=== PATIENT | female | born 1995 | race Caucasian/White ===

== ENCOUNTER 2018-09-21 13:00 | Emergency (ER) | payer OTHER ==
[~2018-09-21] VITALS: Ht 175.3 cm; Wt 65.9 kg
[2018-09-21 13:18] VITALS: BP 110/73; TEMP 98.9
[2018-09-21 14:37] LABS: BASO % 0.4 % (0.0-2.0); EOS # 0.1 (0.0-0.7); EOS % 1.1 % (0-4.0); GRAN # 4.9 (1.4-6.5); GRAN % 68.7 % (42.2-75.2); HEMATOCRIT 39.8 % (37.0-47.0); HEMOGLOBIN 13.8 g/dl (12.5-16.0); LYMPH # 1.5 (1.2-3.4); LYMPH % 21.1 % (20.0-51.0); MEAN CELL VOLUME 86 fl (80.0-100.0); MEAN CORPUSCULAR HEMOGLOBIN 30 pg (27.0-31.0); MEAN CORPUSCULAR HGB CONC 35 g/dl (33.0-37.0); MEAN PLATELET VOLUME 10.1 fl (7.4-10.4); MONO # 0.6 (0.1-0.6); MONO % 8.6 % (1.7-9.3); PLATELET COUNT 198 K/mm3 (130-400); RED BLOOD COUNT 4.62 M/mm3 (4.10-5.30); REDCELL DISTRIBUTION WIDTH-CV 12.7 % (11.5-14.5)
[2018-09-21 14:50] VITALS: PULSE 78
== END 2018-09-21 14:50 | disposition home or self-care (01) ==
LOC: COL.ER 13:00
PROVIDERS: Physician Assistant
DX: R04.0 Epistaxis (principal)

== ENCOUNTER 2018-09-21 22:44 | Emergency (ER) | payer OTHER ==
[~2018-09-21] VITALS: Ht 175.3 cm; Wt 65.9 kg
[2018-09-21 23:02] VITALS: BP 108/71; TEMP 97
[2018-09-22 00:05] VITALS: PULSE 89
== END 2018-09-22 00:06 | disposition home or self-care (01) ==
LOC: COL.ER 22:44
DX: R04.0 Epistaxis (principal)

== ENCOUNTER 2019-01-25 11:11 | Emergency (ER) | payer OTHER ==
[~2019-01-25] VITALS: Ht 175.3 cm; Wt 65.9 kg
[2019-01-25 11:19] VITALS: TEMP 98.2
[2019-01-25] MEDS ORDERED: ADVIL200 MG PO (11:56)
[2019-01-25 12:12] LABS: BASO % 0.2 % (0.0-2.0); EOS # 0.1 (0.0-0.7); GRAN # 4.2 (1.4-6.5); GRAN % 71.7 % (42.2-75.2); HEMATOCRIT 38.6 % (37.0-47.0); HEMOGLOBIN 12.8 g/dl (12.5-16.0); LYMPH # 1.2 (1.2-3.4); LYMPH % 21.2 % (20.0-51.0); MEAN CELL VOLUME 89 fl (80.0-100.0); MEAN CORPUSCULAR HEMOGLOBIN 30 pg (27.0-31.0); MEAN CORPUSCULAR HGB CONC 33 g/dl (33.0-37.0); MONO # 0.3 (0.1-0.6); MONO % 5.7 % (1.7-9.3); PLATELET COUNT 180 K/mm3 (130-400); RED BLOOD COUNT 4.33 M/mm3 (4.10-5.30); REDCELL DISTRIBUTION WIDTH-CV 13.2 % (11.5-14.5)
[2019-01-25 12:20] LABS: ALBUMIN 4.1 gm/dL (3.5-5.0); BILIRUBIN,TOTAL 0.8 mg/dL (0.0-1.0); CALCIUM 9.4 mg/dL (8.4-10.2); CREATININE, serum 0.59 mg/dL (0.52-1.25); POTASSIUM 4.1 mmol/L (3.4-5.0); TOTAL PROTEIN 7.1 gm/dL (6.4-8.2)
[2019-01-25 12:46] LABS: COLLECTION METHOD CLEAN CATCH
[2019-01-25 12:54] LABS: PH 8 (5-8); SQUAMOUS EPITHELIAL 0-2 /hpf; URINE APPEARANCE Clear; URINE BACTERIA None Seen /hpf; URINE BILIRUBIN Negative (NEGATIVE); URINE BLOOD 2+ (NEGATIVE); URINE COLOR Straw; URINE GLUCOSE Negative (NEGATIVE); URINE KETONE Negative (NEGATIVE); URINE LEUKOCYTE ESTERASE Negative (NEGATIVE); URINE NITRATE Negative (NEGATIVE); URINE PROTEIN(semi-quant) Negative (NEGATIVE); URINE RBC 0-2 /hpf; URINE UROBILINOGEN Negative (NEGATIVE)
[2019-01-25 13:46] VITALS: BP 102/64; PULSE 67
== END 2019-01-25 13:46 | disposition home or self-care (01) ==
LOC: COL.ER 11:11
PROVIDERS: Emergency Medicine
DX: R10.31 Right lower quadrant pain (principal)
CPT/HCPCS: J1885

== ENCOUNTER 2021-08-19 21:04 | Emergency (ER) | payer OTHER ==
[~2021-08-19] VITALS: Ht 175.3 cm; Wt 65.9 kg
[~2021-08-19 21:04] MED LIST: ADVIL200 MG PO
[2021-08-19 21:27] VITALS: TEMP 98.3
[2021-08-19] MEDS ORDERED: AMOXICILLIN 8751 TAB PO (22:15)
[2021-08-19 22:16] VITALS: BP 111/76; PULSE 64
== END 2021-08-19 22:16 | disposition home or self-care (01) ==
LOC: COL.ER 21:04
DX: S61.011A Laceration without foreign body of right thumb without damage to nail, initial encounter (principal); W26.8XXA Contact with other sharp object(s), not elsewhere classified, initial encounter; Y99.0 Civilian activity done for income or pay

== ENCOUNTER 2021-08-27 22:51 | Emergency (ER) | payer OTHER ==
[~2021-08-27] VITALS: Ht 175.3 cm; Wt 65.9 kg
[2021-08-27 23:03] VITALS: TEMP 97.2
[2021-08-27 23:27] VITALS: BP 114/78; PULSE 76
== END 2021-08-27 23:27 | disposition home or self-care (01) ==
LOC: COL.ER 22:51
DX: Z48.00 Encounter for change or removal of nonsurgical wound dressing (principal)

== ENCOUNTER → 2021-08-27 | Emergency (ER) | payer OTHER ==
[~2021-08-27] MED LIST changes: +AMOXICILLIN 8751 TAB PO
[2021-08-27 10:52] VITALS: BP 106/67; PULSE 81; TEMP 98.2
== END ==
LOC: COL.ER 10:48
DX: Z48.02 Encounter for removal of sutures (principal)

== ENCOUNTER 2022-04-13 03:30 | Emergency (ER) | payer OTHER ==
[~2022-04-13] VITALS: Ht 175.3 cm; Wt 68.2 kg
[2022-04-13 03:38] VITALS: TEMP 98.1
[2022-04-13] MEDS ORDERED: PREDNISONE20 MG PO (04:30)
[2022-04-13 05:15] VITALS: BP 122/74; PULSE 88
== END 2022-04-13 05:27 | disposition home or self-care (01) ==
LOC: COL.ER 03:30
DX: J45.909 Unspecified asthma, uncomplicated (principal)
CPT/HCPCS: J7512